=== PATIENT | male | born 1960 | race Hispanic/Latino ===

== ENCOUNTER 2020-05-21 15:23 | Emergency (ER) | payer BC ==
--- NOTE | 2020-05-21 16:05 | RAD REPORT ---
EXAM DESCRIPTION: Bob Single View05/21/2020 3:54 pm CLINICAL HISTORY: Cough COMPARISON: none FINDINGS: The lungs appear clear of acute infiltrate. The heart is normal size IMPRESSION: No acute abnormalities displayed
[2020-05-21 16:11] LABS: Absolute Lymphocytes (CBC) 0.5 K/uL (0.7-4.9); Basophils % 0.5 % (0-1.3); Hematocrit 38.8 % (39.6-49.0); Lymphocytes % 20.9 % (15.3-44.8); MPV 7.7 fL (7.6-11.3); RBC Red Blood Cell Count 4.52 M/uL (4.33-5.43)
[2020-05-21 16:25] LABS: ALT/SGPT 40 U/L (12-78); AST/SGOT 35 U/L (15-37); Albumin 3.5 g/dL (3.4-5.0); Alkaline Phosphatase 123 U/L (45-117); BUN Blood Urea Nitrogen 12 mg/dL (7-18); Bicarbonate 26 mmol/L (21-32); Bilirubin Direct 0.2 mg/dL (0-0.2); Bilirubin Total 0.6 mg/dL (0.2-1.0); Glucose Level 90 mg/dL (74-106); Magnesium 1.9 mg/dL (1.8-2.4); NT PRO-BNP 18 pg/mL (<125); Potassium 3.3 mmol/L (3.5-5.1); Protein, Total 7.9 g/dL (6.4-8.2); Sodium Level 131 mmol/L (136-145); Troponin (Emerg Dept Use Only) < 0.02 ng/mL (0.0-0.045)
[2020-05-21] MEDS ORDERED: HYDROCODONE/CHLORPHEN 5 ML/OSYR ONE (16:30)
[2020-05-21] MEDS ORDERED: ONDANSETRON 4 MG/2 ML VIAL ONE (16:30)
[2020-05-21] MEDS ORDERED: dexAMETHasone 10 MG/ML VIAL ONE (16:30)
[2020-05-21] MEDS ORDERED: NA CHLORIDE 0.9% 500 ML ONE (16:31)
[2020-05-21] MEDS ORDERED: ALBUTEROL INHALER 60 PUFF/8 GM IH ONE (16:31)
[2020-05-21] MEDS ORDERED: ACETAMINOPHEN 500 MG TAB ONE (18:12)
[2020-05-21] MEDS ORDERED: POTASSIUM 25 MEQ EFFERV TAB ONE (18:12)
[2020-05-21 18:16] LABS: Protime INR 1.07
--- NOTE | 2020-05-21 19:22 | EDPHYS ---
Physician Documentation [facility] Name: Sloan Parham Age: 59 yrs Sex: Male : 1960 Arrival Date: 05/21/2020 Time: 15:24 Bed 18 Private MD: ED Physician Jasvir Munoz HPI: 05/21 15:35 This 59 yrs old Male presents to ER via Unassigned with complaints of General cp Weakness, Cough, COVID-19 positive. 15:35 The patient has shortness of breath with light activity. cp 15:35 Onset: The symptoms/episode began/occurred gradually, and became worse today. cp Historical: - Allergies: 15:24 No Known Allergies; aa5 - PMHx: 15:24 Hypertension; aa5 ROS: 15:40 Constitutional: Negative for poor PO intake. cp 15:40 Eyes: Negative for injury, pain, redness, and discharge. cp 15:40 Cardiovascular: Negative for chest pain, edema. 15:40 Respiratory: Positive for cough, "sounds productive", shortness of breath. 15:40 Abdomen/GI: Positive for nausea, Negative for abdominal pain, vomiting, diarrhea. 15:40 Neuro: Positive for general weakness, Negative for altered mental status, headache, syncope. 15:40 All other systems are negative. Exam: 15:45 Constitutional: The patient appears in no acute distress, alert, awake, cp non-diaphoretic, non-toxic, well developed, well nourished, uncomfortable. 15:45 Head/Face: Normocephalic, atraumatic. cp 15:45 Eyes: Periorbital structures: appear normal, Conjunctiva: normal, no exudate, no injection, Sclera: no appreciated abnormality, Lids and lashes: appear normal, bilaterally. 15:45 ENT: External ear(s): are unremarkable, Nose: is normal, Mouth: Lips: moist, Oral mucosa: moist, Posterior pharynx: Airway: no evidence of obstruction, patent. 15:45 Neck: ROM/movement: is normal, is supple, without pain, no range of motions limitations, no meningismus. 15:45 Chest/axilla: Inspection: normal, Palpation: is normal, no crepitus, no tenderness. 15:45 Cardiovascular: Rate: normal, Rhythm: regular, Edema: is not appreciated, JVD: is not appreciated. 15:45 Respiratory: the patient does not display signs of respiratory distress, Respirations: labored breathing, that is mild, intercostal retractions, are absent, Breath sounds: bronchial sounds, that are mild, are heard diffusely, decreased breath sounds, are not appreciated, + upper airway congestion. 15:45 Abdomen/GI: Inspection: abdomen appears normal, Bowel sounds: active, all quadrants, Palpation: abdomen is soft and non-tender, in all quadrants. 15:45 Back: pain, is absent, ROM is normal. 15:45 Skin: no rash present. 17:00 ECG was reviewed by the Attending Physician. cp Vital Signs: 15:24 BP 117 / 56; Pulse 86; Resp 16 S; Temp 100.1(O); Pulse Ox 95% on R/A; aa5 16:30 BP 123 / 59; Pulse 81; Resp 19; Pulse Ox 95% ; rb3 17:30 BP 115 / 53; Pulse 82; Resp 21; Pulse Ox 95% ; rb3 18:30 BP 128 / 58; Pulse 81; Resp 22; Pulse Ox 94% ; rb3 19:33 BP 108 / 83; Pulse 80; Resp 20; Temp 99.4; Pulse Ox 96% ; rr5 MDM: 15:35 Patient medically screened. cp 19:20 Data reviewed: vital signs, nurses notes, lab test result(s), EKG, radiologic studies, cp plain films. 19:20 Test interpretation: by ED physician or midlevel provider: ECG, plain radiologic cp studies. Counseling: I had a detailed discussion with the patient and/or guardian regarding: the historical points, exam findings, and any diagnostic results supporting the discharge/admit diagnosis, lab results, radiology results, the need for outpatient follow up, a family practitioner, to return to the emergency department if symptoms worsen or persist or if there are any questions or concerns that arise at home. Response to treatment: the patient's symptoms have markedly improved after treatment, and as a result, I will discharge patient. 05/21 15:30 Order name: Basic Metabolic Panel; Complete Time: 16:45 cp 05/21 16:45 Interpretation: Normal except: NA 131; K 3.3; CL 97; GFR 81. cp 05/21 15:30 Order name: CBC with Diff; Complete Time: 16:45 cp 05/21 18:48 Interpretation: Normal except: WBC 2.6; HGB 13.4; HCT 38.8; LYMA 0.5. 12/ 15:30 Order name: LFT's; Complete Time: 16:45 12/ 18:52 Interpretation: Normal except: ALK 123; GLOB 4.4; A/G 0.8. 12/ 15:30 Order name: Magnesium; Complete Time: 16:45 12 15:30 Order name: NT PRO-BNP; Complete Time: 16:45 12 15:30 Order name: PT-INR; Complete Time: 18:44 12/ 18:47 Interpretation: Reviewed. 05/21 15:30 Order name: Troponin (emerg Dept Use Only); Complete Time: 16:45 05/21 15:30 Order name: XRAY Chest (1 view); Complete Time: 16:45 05/21 16:45 Interpretation: Report review. 05/21 15:30 Order name: Procalcitonin 05/21 15:30 Order name: Lactate; Complete Time: 18:44 05/21 15:30 Order name: D-Dimer; Complete Time: 18:44 12 18:48 Interpretation: Reviewed. 05/21 15:30 Order name: EKG; Complete Time: 15:31 05/21 15:30 Order name: Cardiac monitoring; Complete Time: 17:08 05/21 15:30 Order name: EKG - Nurse/Tech; Complete Time: 17:08 05/21 15:30 Order name: IV Saline Lock; Complete Time: 15:59 05/21 15:30 Order name: Labs collected and sent; Complete Time: 15:59 05/21 15:30 Order name: O2 Per Protocol; Complete Time: 16:00 05/21 15:30 Order name: O2 Sat Monitoring; Complete Time: 16:00 cp EC:00 Rate is 80 beats/min. Rhythm is regular. SC interval is normal. QRS interval is cp prolonged at 116 msec. QT interval is normal. T waves are Inverted in lead aVR. Interpreted by me. Reviewed by me. Administered Medications: 16:00 Drug: Zofran (Ondansetron) 4 mg Route: IVP; Site: right antecubital; rb3 16:30 Follow up: Response: No adverse reaction rb3 16:00 Drug: NS 0.9% 500 ml Route: IV; Rate: 500 ml/hr; Site: right antecubital; rb3 16:30 Follow up: IV Status: Completed infusion rb3 16:00 Drug: Tussionex Pennkinetic ER 5 ml Route: PO; rb3 16:30 Follow up: Response: No adverse reaction rb3 16:00 Drug: Decadron - Dexamethasone 10 mg Route: IVP; Site: right antecubital; rb3 16:15 Follow up: Response: No adverse reaction rb3 16:00 Drug: Albuterol HFA Inhaler 2 puffs Route: Inhalation; rb3 18:00 Drug: Tylenol 1000 mg Route: PO; rb3 18:30 Follow up: Response: No adverse reaction rb3 18:00 Drug: Potassium Effervescent Tablet 50 mEq Route: PO; rb3 18:30 Follow up: Response: No adverse reaction rb3 Disposition: 05/22 06:33 Co-signature as Attending Physician, Jasvir Munoz MD I agree with the assessment and kdr plan of care. Disposition: 05/21/20 19:21 Discharged to Home. Impression: Acute bronchitis, Coronavirus infection, unspecified. - Condition is Stable. - Discharge Instructions: Acute Bronchitis, Adult, COVID-19. - Prescriptions for Tessalon Perles 100 mg Oral Capsule - take 2 capsule by ORAL route every 8 hours As needed; 30 capsule. Zithromax Z- Toni 250 mg Oral Tablet - take 1 tablet by ORAL route as directed for 5 days Day 1 - take two (2) tablets one time. Day 2, 3, 4 , 5 take one (1) tablet once daily.; 6 tablet. Prednisone 20 mg Oral Tablet - take 2 tablet by ORAL route once daily for 5 days; 10 tablet. Albuterol Sulfate 90 mcg/actuation - inhale 1-2 puff by INHALATION route every 4-6 hours; 1 Inhaler. - Medication Reconciliation Form, Thank You Letter, Antibiotic Education, Prescription Opioid Use form. - Follow up: Private Physician; When: 1 - 2 days; Reason: Recheck today's complaints. - Problem is new. - Symptoms have improved. Signatures: Dispatcher [employer] Jasvir Webb MD MD kdr Calderon, Audri RN RN aa5 Roque Kaiser PA PA cp René Juárez RN RN rr5 Veronica Stovall, RN RN rb3 Corrections: (The following items were deleted from the chart) 05/21 18:44 16:45 Normal except: WBC 2.6; HGB 13.4; HCT 38.8. cp cp 19:36 19:21 05/21/2020 19:21 Discharged to Home. Impression: Acute bronchitis; Coronavirus rr5 infection, unspecified. Condition is Stable. Forms are Medication Reconciliation Form, Thank You Letter, Antibiotic Education, Prescription Opioid Use. Follow up: Private Physician; When: 1 - 2 days; Reason: Recheck today's complaints. Problem is new. Symptoms have improved. cp
--- NOTE | 2020-05-21 19:22 | ER ---
Nurse's Notes [facility] Name: Sloan Parham Age: 59 yrs Sex: Male : 1960 Arrival Date: 05/21/2020 Time: 15:24 Bed 18 Private MD: Diagnosis: Acute bronchitis;Coronavirus infection, unspecified Presentation: 05/21 15:24 Chief complaint: Patient states: Diagnosed COVID-19 positive on Monday and pt c/o aa5 increased cough and SOB, pt also reports generalized weakness. 15:24 Coronavirus screen: Client presents with at least one sign or symptom that may indicate aa5 coronavirus-19. Standard/surgical mask placed on the client. Provider contacted for isolation considerations. Client reports previous positive COVID test result. Ebola Screen: Patient negative for fever greater than or equal to 101.5 degrees Fahrenheit, and additional compatible Ebola Virus Disease symptoms. Initial Sepsis Screen: Does the patient meet any 2 criteria? No. Patient's initial sepsis screen is negative. Does the patient have a suspected source of infection? Yes:. Risk Assessment: Do you want to hurt yourself or someone else? Patient reports no desire to harm self or others. Onset of symptoms was May 21, 2020. 15:24 Acuity: SERGIO 3 aa5 15:24 Method Of Arrival: EMS: [facility] aa5 Historical: - Allergies: 15:24 No Known Allergies; aa5 - PMHx: 15:24 Hypertension; aa5 Screenin:30 Abuse screen: Denies threats or abuse. Nutritional screening: No deficits noted. rb3 Tuberculosis screening: No symptoms or risk factors identified. Fall Risk None identified. Assessment: 15:30 General: Appears uncomfortable, Behavior is calm, cooperative, Reports fever for rb3 fatigue for. Neuro: Level of Consciousness is awake, alert, obeys commands, Oriented to person, place, time, situation. Neuro: Reports weakness. Cardiovascular: Patient's skin is warm and dry. Respiratory: Reports shortness of breath cough that is non-productive, Airway is patent Respiratory effort is even, unlabored, Respiratory pattern is regular, symmetrical. GI: No signs and/or symptoms were reported involving the gastrointestinal system. : No signs and/or symptoms were reported regarding the genitourinary system. Musculoskeletal: Range of motion: intact in all extremities. 16:30 Reassessment: Patient appears in no apparent distress at this time. No changes from rb3 previously documented assessment. 17:22 Reassessment: Patient appears in no apparent distress at this time. Patient and/or rb3 family updated on plan of care and expected duration. Pain level reassessed. Patient is alert, oriented x 3, equal unlabored respirations, skin warm/dry/pink. 18:20 Reassessment: Patient appears in no apparent distress at this time. No changes from rb3 previously documented assessment. 19:25 Reassessment: Patient appears in no apparent distress at this time. Patient is alert, rr5 oriented x 3, equal unlabored respirations, skin warm/dry/pink. discharge instruction given and explained without complaints made Patient states feeling better. Patient states symptoms have improved. Vital Signs: 15:24 BP 117 / 56; Pulse 86; Resp 16 S; Temp 100.1(O); Pulse Ox 95% on R/A; aa5 16:30 BP 123 / 59; Pulse 81; Resp 19; Pulse Ox 95% ; rb3 17:30 BP 115 / 53; Pulse 82; Resp 21; Pulse Ox 95% ; rb3 18:30 BP 128 / 58; Pulse 81; Resp 22; Pulse Ox 94% ; rb3 19:33 BP 108 / 83; Pulse 80; Resp 20; Temp 99.4; Pulse Ox 96% ; rr5 ED Course: 15:24 Patient arrived in ED. rb3 15:24 Micah Watson PA is PHCP. m 15:24 Arm band placed on Patient placed in an exam room, on a stretcher. aa5 15:25 Jasvir Munoz MD is Attending Physician. jmm 15:25 Roque Kaiser PA is PHCP. cp 15:25 Jasvir Munoz MD is Attending Physician. cp 15:30 Patient has correct armband on for positive identification. Bed in low position. Call rb3 light in reach. Side rails up X 1. secured entrance monitor on. Pulse ox on. NIBP on. given a sheet. 15:51 Veronica Stovall, RN is Primary Nurse. rb3 15:55 XRAY Chest (1 view) In Process Unspecified. EDMS 15:59 Inserted saline lock: 20 gauge in right antecubital area, using aseptic technique. dh4 Blood collected. 16:12 Triage completed. aa5 19:34 No provider procedures requiring assistance completed. IV discontinued, intact, rr5 bleeding controlled, No redness/swelling at site. Pressure dressing applied. Administered Medications: 16:00 Drug: Zofran (Ondansetron) 4 mg Route: IVP; Site: right antecubital; rb3 16:30 Follow up: Response: No adverse reaction rb3 16:00 Drug: NS 0.9% 500 ml Route: IV; Rate: 500 ml/hr; Site: right antecubital; rb3 16:30 Follow up: IV Status: Completed infusion rb3 16:00 Drug: Tussionex Pennkinetic ER 5 ml Route: PO; rb3 16:30 Follow up: Response: No adverse reaction rb3 16:00 Drug: Decadron - Dexamethasone 10 mg Route: IVP; Site: right antecubital; rb3 16:15 Follow up: Response: No adverse reaction rb3 16:00 Drug: Albuterol HFA Inhaler 2 puffs Route: Inhalation; rb3 18:00 Drug: Tylenol 1000 mg Route: PO; rb3 18:30 Follow up: Response: No adverse reaction rb3 18:00 Drug: Potassium Effervescent Tablet 50 mEq Route: PO; rb3 18:30 Follow up: Response: No adverse reaction rb3 Outcome: 19:21 Discharge ordered by . cp 19:34 Discharged to home ambulatory. rr5 19:34 Condition: stable 19:34 Discharge instructions given to patient, Instructed on discharge instructions, follow up and referral plans. medication usage, Demonstrated understanding of instructions, follow-up care, medications, Prescriptions given X 4. 19:36 Patient left the ED. rr5 Signatures: Dispatcher [employer] EDMS Micah Watson PA PA jmm Calderon, Audri, RN RN aa5 Roque Kaiser PA PA cp Roque, Raymond RN RN rr5 Ariel Fraga 4 Veronica Stovall, RN RN rb3
--- NOTE | 2020-05-22 13:40 | EKG ---
Test Date: 2020-05-21 Test Time: 16:50:14 Electrical Equipment Tester: PHILIPPE MEASUREMENT RESULTS: Intervals: Rate: 80 MS: 168 QRSD: 116 QT: 396 QTc: 456 [place]: P: 73 MS: 168 QRS: 79 T: 55 INTERPRETIVE STATEMENTS: Normal sinus rhythm Normal ECG No previous ECG available for comparison Electronically Signed On 05-22-20 13:37:08 PLATE PAINTER APPRENTICE by Korey Morrison
== END 2020-05-21 19:36 | disposition home or self-care (01) ==
LOC: ER 15:23
DX: U07.1 COVID-19 (principal); J20.9 Acute bronchitis, unspecified; I10 Essential (primary) hypertension
CPT/HCPCS: 93005; 85025; 80048; 36415; 83735; 85610; 85379; 80076; 83605; 84484; 84145; 83880; 71045; 96375; 96374; 99285; J1100; J7040; J2405